=== PATIENT | female | born 1980 | race Caucasian/White ===

== ENCOUNTER 2020-02-18 14:30 | Outpatient (CLI) | payer MEDICAID ==
[2020-02-19 11:23] LABS: MUDS CUTOFF CONCENTRATIONS CUTOFF CONC BELOW:
[2020-02-19 11:29] LABS: BILIRUBIN,URINE NEGATIVE (NEGATIVE); GLUCOSE, URINE (UA) NEGATIVE (NEGATIVE); KETONES,URINE (UA) NEGATIVE (NEGATIVE); LEUKOCYTE ESTERASE, URINE NEGATIVE (NEGATIVE); NITRITE,URINE NEGATIVE (NEGATIVE); OCCULT BLOOD,URINE NEGATIVE (NEGATIVE); PROTEIN,URINE NEGATIVE (NEGATIVE); UROBILINOGEN,URINE 0.2 (NORMAL) E.U./dL (NORMAL)
[2020-02-19 11:30] LABS: CLARITY,URINE CLEAR (CLEAR)
[2020-02-19 11:38] LABS: BACTERIA,URINE Few /HPF (None Seen); RBC,URINE None Seen /HPF (0-5); SQUAMOUS EPITHELIAL CELL,UR MOD Squamous (<= Few)
[2020-02-19 11:40] LABS: AMPHETAMINE SCREEN,URINE NEGATIVE (NEGATIVE); BENZODIAZEPINES SCREEN, URINE NEGATIVE (NEGATIVE); COCAINE SCREEN URINE NEGATIVE (NEGATIVE); METHADONE SCREEN, URINE NEGATIVE (NEGATIVE); METHAMPHETAMINES SCREEN, URINE NEGATIVE (NEGATIVE); OPIATE SCREEN, URINE NEGATIVE (NEGATIVE); OXYCODONE SCREEN, URINE NEGATIVE (NEGATIVE); PROPOXYPHENE SCREEN, URINE NEGATIVE (NEGATIVE); TRICYCLIC ANTIDEPRESSANT,URINE NEGATIVE (NEGATIVE)
== END 2020-02-18 23:59 | disposition home or self-care (01) ==
LOC: LAB.R 14:30
PROVIDERS: ATTEND Nurse Practitioner Obstetrics & Gynecology
DX: O09.519 Supervision of elderly primigravida, unspecified trimester (principal)
CPT/HCPCS: 80306; 81001; 87086

== ENCOUNTER 2020-02-27 15:15 | Outpatient (CLI) | payer MEDICAID ==
--- NOTE | 2020-02-27 16:41 | Ultrasound Report ---
PROCEDURE: OB First Trimester INDICATIONS: SUPERVISION OF ELDERLY PRIMIGRAVIDA OUTSIDE/PRIOR DATING DATA: Last menstrual period (LMP): 12/31/2019. LMP-based estimated date of delivery ([facility]ILL): 10/06/2020. First dating scan (date and location): 02/27/2020. Estimated date of delivery ([facility]ILL) from first dating scan: 10/09/2020. TECHNIQUE: Real-time scanning was performed of the fetus and maternal pelvic organs, with image documentation. COMPARISON: None FINDINGS: Embryo: Single intrauterine is identified with crown-rump length measuring 1.5 cm correspo nding to 7 weeks 6 days. heart rate is identified at 160 bpm. The cervix is closed. There is a questionable 7 x 3 mm subchorionic hemorrhage. Measurement variability in dating: +/- 4 weeks by LMP, +/- 7 days by mean sac diameter (use before 6 weeks gestation if crown-rump length not able to be measured), +/- 5 days by crown-rump length (6-12 weeks gestation). Maternal organs: Ovaries demonstrate a left corpus luteal cyst measuring 3.7 x 3.1 x 3.0 cm.. Limit ed images through the kidneys demonstrate no hydronephrosis. IMPRESSION: 1. Single live of patency with ultrasound gestational age of 7 weeks 6 days corresponding to ultrasou nd HILL of 10/09/2020. 2. Questionable 7 x 3 mm subchorionic hemorrhage. 3. Follow-up imaging at 20-22 weeks for dates and anatomy is recommended. Reviewed by: Meghan Emanuel MD on 02/27/2020 4:40 PM PST Approved by: Meghan Emanuel MD on 02/27/2020 4:40 PM PST Station ID: [id number]
== END 2020-02-27 15:16 | disposition home or self-care (01) ==
LOC: DI 15:15
PROVIDERS: ATTEND Advanced Practice Midwife
DX: O09.511 Supervision of elderly primigravida, first trimester (principal); Z3A.01 Less than 8 weeks gestation of pregnancy

== ENCOUNTER 2020-10-10 08:00 | Outpatient (CLI) | payer MEDICAID, OTHER ==
[2020-10-10 20:46] LABS: BACTERIAL VAGINOSIS DNA POSITIVE (NEGATIVE); CANDIDA KRUSEI DNA NEGATIVE (NEGATIVE)
[2020-10-10 20:47] LABS: CANDIDA GLABRATA DNA NEGATIVE (NEGATIVE); CANDIDA GROUP DNA NEGATIVE (NEGATIVE); TRICHOMONAS VAGINALIS DNA NEGATIVE (NEGATIVE)
== END 2020-10-10 23:59 | disposition home or self-care (01) ==
LOC: LAB.S 08:00
PROVIDERS: ATTEND Physician Assistant Medical
DX: N76.0 Acute vaginitis (principal)
CPT/HCPCS: 87661; 87801

== ENCOUNTER 2022-09-13 07:00 | Outpatient (CLI) | payer OTHER, MEDICAID | END 2022-09-13 23:59 | disposition home or self-care (01) | LOC: LAB.S 07:00 | PROVIDERS: ATTEND Physician Assistant Medical | DX: J02.9 Acute pharyngitis, unspecified (principal) | CPT/HCPCS: 87070; 87077 ==

== ENCOUNTER 2023-05-04 08:00 | Outpatient (CLI) | payer MEDICAID, OTHER | END 2023-05-04 23:59 | disposition home or self-care (01) | LOC: LAB.S 08:00 | PROVIDERS: ATTEND Registered Nurse | DX: J02.9 Acute pharyngitis, unspecified (principal) | CPT/HCPCS: 87070 ==